=== PATIENT | male | born 1985 | race Two or more races ===

== ENCOUNTER 2018-11-20 03:33 | Emergency (ER) | payer SELFPAY ==
[~2018-11-20] VITALS: Ht 170.2 cm; Wt 67.0 kg
[2018-11-20 03:37] VITALS: BP 122/67
[2018-11-20] MEDS ORDERED: DIPH,PERTUSS(ACELL),TET VAC/PF 0.5 ML IM-VACC ONE ×2 (03:48→04:00)
[2018-11-20] MEDS ORDERED: LIDOCAINE-MPF 1%, 5ML ONE ×2 (03:48→05:32)
[2018-11-20] MEDS ORDERED: LIDOCAINE-MPF 1%, 5ML INFIL ONE (04:00)
--- NOTE | 2018-11-20 04:00 | NUR ---
PT AMBULATE TO BATHROOM UNDER SUPERVISION RELATED TO ETOH USE, GAIT STEADY, PT THEN WALKS OUT AMBULANCE BAY AND ENCOURAGED TO RETURN MOST CERTAINLY NEEDS SUTURE, PT AGREES. DT UPDATED. AWAIT PROVIDER
--- NOTE | 2018-11-20 05:15 | NUR ---
PROVIDERS TO ROOM FOR SUTURE, WOUND HAS BEEN CLEANED AND PREPPED BY STAFF
== END 2018-11-20 06:21 | disposition home or self-care (01) ==
LOC: ED 06:19
DX: S51.811A Laceration without foreign body of right forearm, initial encounter (principal); X58.XXXA Exposure to other specified factors, initial encounter; Y93.39 Activity, other involving climbing, rappelling and jumping off; Y92.410 Unspecified street and highway as the place of occurrence of the external cause; Y99.8 Other external cause status
CPT/HCPCS: 13121; 90471; 90715